=== PATIENT | male | born 1990 | race Asian ===

== ENCOUNTER 2019-09-19 21:02 | Emergency (ER) | payer OTHER ==
[~2019-09-19] VITALS: Ht 177.8 cm; Wt 81.4 kg
--- NOTE | 2019-09-19 21:06 | PHYS DOC ---
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 Patient is from [facility] area of [facility] originally from the [facility]. Patient has always been in excellent health. No history of illnesses. No history of malaria or paragonimiasis. Patient has been taking a herbal supplement the last 10 days for slight abdomen upset. Patient has been in the commander's course at [facility]. No recent travel outside the [place] area. Has been in [facility] for the past year for his course. There is no family history of cardiac disease. Patient works out every day. Patient has not had any syncope, dizziness or chest pain with the episodes of rapid heart rate. Patient has never had these symptoms previously. Patient denies any fever chills or d yspnea. Patient follows at [place]. Review of Systems: Review of Systems: Constitutional: Denies fever or chills Eyes: Denies change in visual acuity HENT: Denies nasal congestion or sore throat Respiratory: Denies cough or shortness of breath Cardiovascular: Denies chest pain or edema GI: Denies abdominal pain, nausea, vomiting, bloody stools or diarrhea. : Denies dysuria Musculoskeletal: Denies back pain or joint pain . Integument: Denies rash Neurologic: Denies headache, focal weakness or sensory changes Endocrine: Denies polyuria or polydipsia Lymphatic: Denies swollen glands Psychiatric: Denies depression or anxiety Heart Score: HEART Score for Chest Pain: HEART Score for Chest Pain Response (Comments) Value History Slighlty/Non-Suspicious 0 ECG Normal 0 Age < 45 0 Risk Factors No Risk Factors 0 Troponin < Normal Limit 0 Total 0 Risk Factors: Risk Factors: DM, Current or recent (<one month) smoker, HTN, HLP, family history of CAD, obesity. Risk Scores: Score 0 - 3: 2.5% MACE over next 6 weeks - Discharge Home Score 4 - 6: 20.3% MACE over next 6 weeks - Admit for Clinical Observation Score 7 - 10: 72.7% MACE over next 6 weeks - Early Invasive Strategies Family History: Family History: Noncontributory Current Medications: Current Meds: See nursing for home medications Allergies: Allergies: No known drug allergies Physical Exam: PE: Constitutional: Well developed, well nourished, no acute distress, non-toxic appearance. [] HENT: Normocephalic, atraumatic, bilateral external ears normal, oropharynx moist, no oral exudates, nose normal. [] Eyes: PERRLA, EOMI, conjunctiva normal, no discharge. [] Neck: Normal range of motion, no tenderness, supple, no stridor. [] Cardiovascular: Tachycardia heart rate regular rhythm, no murmur [] Lungs & Thorax: Bilateral breath sounds clear to auscultation [] Abdomen: Bowel sounds normal, soft, no tenderness, no masses, no pulsatile masses. [] Skin: Warm, dry, no erythema, no rash. [] Back: No tenderness, no CVA tenderness. [] Extremities: No tenderness, no cyanosis, no clubbing, ROM intact, no edema. No cording in the legs Neurologic: Alert and oriented X 3, normal motor function, normal sensory function, no focal deficits noted. [] Psychologic: Affect anxious, judgement normal, mood normal. [] EKG: EKG: My interpretation of EKG at 2110 hrs. shows a sinus rhythm at 94 bpm. No acute morphology My interpretation of EKG at 00 38 minutes shows a sinus rhythm rate of 73 bpm. No acute morphology [] Radiology/Procedures: Radiology/Procedures: [][place] [id number] IMAGING REPORT Signed PATIENT: BAYLEE QUINN ACCOUNT: [id number] : 1990 LOCATION: ER AGE: 29 SEX: M EXAM STATUS: PRE ER ORD. PHYSICIAN: SALLIE ANTONIO MD REASON: tachyc PROCEDURE: CHEST PA & LATERAL CHEST PA LATERAL History: Tachycardia Comparison: None. Findings: 2 views of the chest are submitted. There is no infiltrate, pneumothorax, or effusion. Pericardial cardiac silhouette is within normal limits in size. Impression: 1. There is no radiographic evidence of acute cardiopulmonary disease. Electronically signed by: Ni Veras MD (09/19/2019 10:54 PM) [facility] DICTATED AND SIGNED BY: NI VERAS MD DATE: 09/19/19 [id number] CC: SALLIE ANTONIO MD; PCP,AZEB ~ Course & Med Decision Making: Course & Med Decision Making Pertinent Labs and Imaging studies reviewed. (See chart for details) Advised patient to stop his herbal supplement. Patient push fluids. Patient to follow-up with [facility]. Patient return if any concerns. Impression: 1. Hx.of Tachycardia- Episode 2. Recent use of Herbal Supplement [] Rich Disclaimer: Rich Disclaimer: This electronic medical record was generated, in whole or in part, using a voice recognition dictation system. Departure Departure: Disposition: 01 HOME/RESIDENCE PRIOR TO ADM Condition: STABLE Referrals: PCPAZEB (PCP) Rich Disclaimer This chart was dictated in whole or in part using Voice Recognition software in a busy, high-work load, and often noisy Emergency Department environment. It may contain unintended and wholly unrecognized errors or omissions. SALLIE ANTONIO MD Sep 19, 2019 21:06
[2019-09-19 21:27] VITALS: BP 126/76
[2019-09-19] MEDS ORDERED: ASPIRIN CHEWABLE 81 MG TABLET. PO ONE (22:00)
[2019-09-19 22:16] LABS: BASO % 0 % (0-3); EOS % 1 % (0-3); HEMATOCRIT 44.5 % (39.0-53.0); HEMOGLOBIN 15.2 g/dL (13.0-17.5); LYMPH # 1.7 x10^3/uL (1.0-4.8); LYMPH % 25 % (24-48); MEAN CORPUSCULAR HEMOGLOBIN 30 pg (25-35); MEAN CORPUSCULAR HGB CONC 34 g/dL (31-37); MEAN CORPUSCULAR VOLUME 88 fL (79-100); MONO # 0.5 x10^3/uL (0.0-1.1); MONO % 7 % (0-9); NEUT # 4.5 x10^3uL (1.8-7.7); NEUT % 67 % (31-73); PLATELET COUNT 246 x10^3/uL (140-400); RED BLOOD COUNT 5.07 x10^6/uL (4.30-5.70); WHITE BLOOD COUNT 6.7 x10^3/uL (4.0-11.0)
[2019-09-19 22:52] LABS: BARBITURATES NEG (NEG); BENZODIAZEPINES NEG (NEG); CANNABINOIDS NEG (NEG); COCAINE NEG (NEG); METHADONE NEG (NEG); OPIATES NEG (NEG); PHENCYCLIDINE NEG (NEG)
--- NOTE | 2019-09-19 22:57 | RAD ---
CHEST PA LATERAL History: Tachycardia Comparison: None. Findings: 2 views of the chest are submitted. There is no infiltrate, pneumothorax, or effusion. Pericardial cardiac silhouette is within normal limits in size. Impression: 1. There is no radiographic evidence of acute cardiopulmonary disease. Electronically signed by: Nathanael Carmichael MD (09/19/2019 10:54 PM) [facility]
[2019-09-19 23:12] LABS: AMPHETAMINE/METHAMPHETAMINE NEG (NEG)
[2019-09-19 23:25] LABS: BACTERIA,URINE 0 /HPF (0-FEW); BILIRUBIN,URINE NEG (NEG); CLARITY,URINE CLEAR; COLOR,URINE YELLOW; GLUCOSE,URINE NEG (NEG); NITRITE,URINE NEG (NEG); RBC,URINE 0 /HPF (0-2); SQUAMOUS EPITHELIAL CELL,UR OCC /LPF; UROBILINOGEN,URINE 0.2 mg/dL (0.2 mg/dL); WBC,URINE OCC /HPF (0-4)
--- NOTE | 2019-09-19 23:28 | EKG ---
[address] [address] Test Date: 2019-09-19 Test Time: 21:10:12 Pat Name: BAYLEE QUINN Department: Room: Gender: M Cotton Feeder: : 1990 Requested By: SALLIE ANTONIO Order Number: [id number] Reading MD: Willie Santo Measurements Intervals [place] Rate: 94 P: 90 MA: 166 QRS: 75 QRSD: 98 T: 25 QT: 338 QTc: 423 Interpretive Statements SINUS RHYTHM NORMAL ECG RI6.02 No previous ECG available for comparison Electronically Signed On 09-20-2019 8:24:05 CDT by Willie Santo
[2019-09-20] LABS: CALCIUM 9.4 mg/dL (8.5-10.1); CREATININE 0.9 mg/dL (0.7-1.3); GFR 99.8; POTASSIUM 3.5 mmol/L (3.5-5.1)
[2019-09-20 00:13] LABS: ALBUMIN 4.3 g/dL (3.4-5.0); DIRECT BILIRUBIN 0.1 mg/dL (0.0-0.2); MAGNESIUM 2.1 mg/dL (1.8-2.4); TOTAL BILIRUBIN 0.7 mg/dL (0.2-1.0); TOTAL PROTEIN 7.8 g/dL (6.4-8.2)
--- NOTE | 2019-09-20 00:46 | EKG ---
[address] [address] Test Date: 2019-09-20 Test Time: 00:38:09 Pat Name: BAYLEE QUINN Department: Room: Gender: M Bottom Filler: : 1990 Requested By: SALLIE ANTONIO Order Number: [id number] Reading MD: Willie Santo Measurements Intervals [place] Rate: 73 P: [place]: QRS: 73 QRSD: 100 T: 40 QT: 382 QTc: 424 Interpretive Statements SINUS RHYTHM Electronically Signed On 09-20-2019 8:25:17 CDT by Willie Santo
[2019-09-20 13:24] LABS: THYROID STIM HORMONE (TSH) 0.567 uIU/mL (0.358-3.740)
== END 2019-09-20 01:45 | disposition home or self-care (01) ==
LOC: ER 21:02
DX: R00.0 Tachycardia, unspecified (principal)
CPT/HCPCS: 36415; 71046; 80048; 80061; 80076; 80307; 81001; 82550; 83690; 83735; 83880; 84443; 84484; 85025; 85379; 85610; 85730; 93005; 99285

== ENCOUNTER 2019-11-24 16:50 | Emergency (ER) | payer OTHER ==
[~2019-11-24] VITALS: Ht 177.8 cm; Wt 77.3 kg
[2019-11-24] MEDS ORDERED: IV NORMAL SALINE 1,000ML 1,000 ML IV ONE (17:00)
[2019-11-24] MEDS ORDERED: KETOROLAC 15 MG/ML VIAL. IVP ONE (17:15)
--- NOTE | 2019-11-24 17:19 | RAD ---
Exam: Chest 2 view INDICATION: Chest pain TECHNIQUE: Frontal and lateral views the chest Comparisons: 09/19/2019 FINDINGS: The cardiomediastinal silhouette and pulmonary vessels are within normal limits. The lung and pleural spaces are clear. IMPRESSION: No acute cardiopulmonary process. Electronically signed by: Nathalie Nielsen MD (11/24/2019 5:16 PM) [id number]
[2019-11-24 17:29] LABS: BASO % 1 % (0-3); EOS # 0.1 x10^3/uL (0.0-0.7); EOS % 1 % (0-3); HEMATOCRIT 42.4 % (39.0-53.0); HEMOGLOBIN 14.3 g/dL (13.0-17.5); LYMPH # 1.8 x10^3/uL (1.0-4.8); LYMPH % 31 % (24-48); MEAN CORPUSCULAR HEMOGLOBIN 30 pg (25-35); MEAN CORPUSCULAR HGB CONC 34 g/dL (31-37); MEAN CORPUSCULAR VOLUME 89 fL (79-100); MONO # 0.5 x10^3/uL (0.0-1.1); MONO % 8 % (0-9); NEUT # 3.3 x10^3uL (1.8-7.7); NEUT % 59 % (31-73); PLATELET COUNT 222 x10^3/uL (140-400); RED BLOOD COUNT 4.79 x10^6/uL (4.30-5.70); RED CELL DISTRIBUTION WIDTH 12.6 % (11.5-14.5); WHITE BLOOD COUNT 5.7 x10^3/uL (4.0-11.0)
--- NOTE | 2019-11-24 17:31 | PHYS DOC ---
Past History Past Medical History: No Pertinent History Past Surgical History: No Surgical History Alcohol Use: None General Adult EDM: Chief Complaint: CHEST PAIN HPI: HPI: Patient is a [age] year old [sex] who presents with [] Review of Systems: Review of Systems: Constitutional: Denies fever or chills Eyes: Denies change in visual acuity HENT: Denies nasal congestion or sore throat Respiratory: Denies cough or shortness of breath Cardiovascular: Denies chest pain or edema GI: Denies abdominal pain, nausea, vomiting, bloody stools or diarrhea : Denies dysuria Musculoskeletal: Denies back pain or joint pain Integument: Denies rash Neurologic: Denies headache, focal weakness or sensory changes Endocrine: Denies polyuria or polydipsia Lymphatic: Denies swollen glands Psychiatric: Denies depression or anxiety Heart Score: Risk Factors: Risk Factors: DM, Current or recent (<one month) smoker, HTN, HLP, family history of CAD, obesity. Risk Scores: Score 0 - 3: 2.5% MACE over next 6 weeks - Discharge Home Score 4 - 6: 20.3% MACE over next 6 weeks - Admit for Clinical Observation Score 7 - 10: 72.7% MACE over next 6 weeks - Early Invasive Strategies Current Medications: Current Meds: Current Medications Medications (Trade) Dose Ordered Sig/Thom Start Time Stop Time Status Last Admin Dose Admin Ketorolac Tromethamine (Toradol 15mg Vial) 15 mg 1X ONCE 11/24/19 17:15 11/24/19 17:20 DC 11/24/19 17:19 15 MG Sodium Chloride 1,000 ml @ 1,000 mls/hr 1X ONCE 11/24/19 17:00 11/24/19 17:59 11/24/19 17:19 1,000 MLS/HR Allergies: Allergies: Allergies Coded Allergies Type Severity Reaction Last Updated Verified No Known Drug Allergies 09/19/19 No Physical Exam: PE: Constitutional: Well developed, well nourished, no acute distress, non-toxic appearance. [] HENT: Normocephalic, atraumatic, bilateral external ears normal, oropharynx moist, no oral exudates, nose normal. [] Eyes: PERRLA, EOMI, conjunctiva normal, no discharge. [] Neck: Normal range of motion, no tenderness, supple, no stridor. [] Cardiovascular:Heart rate regular rhythm, no murmur [] Lungs & Thorax: Bilateral breath sounds clear to auscultation [] Abdomen: Bowel sounds normal, soft, no tenderness, no masses, no pulsatile masses. [] Skin: Warm, dry, no erythema, no rash. [] Back: No tenderness, no CVA tenderness. [] Extremities: No tenderness, no cyanosis, no clubbing, ROM intact, no edema. [] Neurologic: Alert and oriented X 3, normal motor function, normal sensory function, no focal deficits noted. [] Psychologic: Affect normal, judgement normal, mood normal. [] Current Patient Data: Vital Signs: Vital Signs Date Time Temp Pulse Resp B/P (MAP) Pulse Ox O2 Delivery O2 Flow Rate FiO2 11/24/19 16:50 98.1 85 18 126/76 (93) 98 Room Air EKG: EKG: @1658 NSR at 63bpm, NO ST elevation, QRS 94ms, QT/QTc 374/386ms Radiology/Procedures: Radiology/Procedures: PROCEDURE: CHEST PA & LATERAL Exam: Chest 2 view INDICATION: Chest pain TECHNIQUE: Frontal and lateral views the chest Comparisons: 09/19/2019 FINDINGS: The cardiomediastinal silhouette and pulmonary vessels are within normal limits. The lung and pleural spaces are clear. IMPRESSION: No acute cardiopulmonary process. Electronically signed by: Nathalie Nielsen MD (11/24/2019 5:16 PM) [id number] Course & Med Decision Making: Course & Med Decision Making Pertinent Labs and Imaging studies reviewed. (See chart for details) [] Rich Disclaimer: Rich Disclaimer: This electronic medical record was generated, in whole or in part, using a voice recognition dictation system. Departure Departure: Impression: Primary Impression: Atypical chest pain Disposition: HOME/RESIDENCE PRIOR TO ADM Condition: STABLE Referrals: PCP,NO (PCP) Patient Instructions: Anxiety and Panic Attacks, Zaft-op-Fyls, Chest Pain (Nonspecific), [id number], Gastritis, Adult, [id number] Additional Instructions: Your chest pain is atypical. It does not appear to be heart related. It may be due to anxiety and/or gastritis. Information about both provided for refere nce. Scripts Famotidine (PEPCID) 20 Mg Tablet 1 TAB PO BID for Gastritis, #20 TAB Prov: HOWARD,DIONICIO R DO 11/24/19 Lorazepam (ATIVAN ) 0.5 Mg Tablet 0.5 MG PO PRN TID PRN for ANXIETY, #10 TAB Prov: DIONICIO HOWARD DO 11/24/19 Justification of Admission: Justification of Admission: Justification of Admission Dx: N/A DIONICIO HOWARD DO Nov 24, 2019 17:31
[2019-11-24 17:35] LABS: CALCIUM 8.6 mg/dL (8.5-10.1); CREATININE 1.1 mg/dL (0.7-1.3); GFR 79.1; POTASSIUM 3.5 mmol/L (3.5-5.1)
[2019-11-24 17:53] LABS: ALBUMIN 4.2 g/dL (3.4-5.0); ALBUMIN/GLOBULIN RATIO 1.3 (1.0-1.7); TOTAL BILIRUBIN 0.6 mg/dL (0.2-1.0); TOTAL PROTEIN 7.5 g/dL (6.4-8.2)
[2019-11-24 18:15] VITALS: BP 120/70
[2019-11-24] MEDS ORDERED: LORA0.5T21 PO (18:15)
[2019-11-24] MEDS ORDERED: FAMO-63 PO (18:15)
--- NOTE | 2019-11-24 18:19 | EKG ---
[address] [address] Test Date: 2019-11-24 Test Time: 16:58:44 Pat Name: JOEL QUINN Department: Room: Gender: M Publication Editor: : 1990 Requested By: DIONICIO HOWARD Order Number: [id number] Reading MD: Measurements Intervals [place] Rate: 63 P: [place]: QRS: 69 QRSD: 94 T: 48 QT: 374 QTc: 386 Interpretive Statements IRREGULAR RHYTHM, NO P-WAVE FOUND OTHERWISE NORMAL ECG RI6.02 No previous ECG available for comparison
== END 2019-11-24 18:22 | disposition home or self-care (01) ==
LOC: ER 16:50
DX: R07.89 Other chest pain (principal)
CPT/HCPCS: 36415; 71046; 80053; 83690; 83735; 83880; 85025; 93005; 96374; 99285; J1885; J7030